=== PATIENT | male | born 2005 | race Hispanic/Latino ===

== ENCOUNTER 2024-01-02 14:27 | Emergency (ER) | payer SELFPAY ==
[2024-01-02 15:01] LABS: Bilirubin Neg (Negative); Blood, Urine Negative (Negative); Clarity Clear (Clear); Glucose, Urine (Dipstick) Normal (Negative); Ketone, Urine Negative (Negative); Leukocyte 25 (Negative); Nitrite Negative (Negative); Protein, Urine (Dipstick) Negative (Neg-Trace); Specific Gravity, Urine 1.015 (1.005-1.030); Urobilinogen Normal mg/dL (Less than 2)
[2024-01-02 15:24] LABS: #Basophils 0.03 10x3/uL (0.0-0.2); #Monocytes 0.33 10x3/uL (0.0-1.1); #Neutrophils 2.84 10x3/uL (1.5-8.4); %Basophils 0.5 % (0.0-2.0); %Eosinophils 1.7 % (0.0-6.0); %Lymphocytes 44.8 % (18.0-47.0); %Monocytes 5.5 % (0.0-10.0); %Neutrophils 47.2 % (40.0-75.0); Hematocrit 41.1 % (38.8-50.0); Hemoglobin 13.3 g/dL (13.5-17.5); Mean Corpuscular HGB CONC 32.4 g/dL (32.0-36.0); Mean Corpuscular Hemoglobin 25.3 pg (27.0-33.0); Mean Corpuscular Volume 78.1 fL (81.2-95.1); Mean Platelet Volume 11.4 fL (7.4-10.4); Platelet Count 254 10x3/uL (150-450); RBC Distribution Width 14.8 % (11.5-14.5); Red Blood Cell (RBC) Count 5.26 10x6/uL (4.32-5.72)
[2024-01-02 15:43] LABS: ALT (SGPT) 11 U/L (8-55); AST (SGOT) 20 U/L (5-34); Albumin 4.6 g/dL (3.5-5.0); Alkaline Phosphatase 103 U/L (50-130); Anion Gap 10 mmol/L (10-20); BUN (Urea Nitrogen) 12 mg/dL (8.9-20.6); Bilirubin, Total 0.7 mg/dL (0.2-1.2); Calc. Creatinine Clearance 0 mL/min (70-130); Calcium 9.7 mg/dL (7.8-10.44); Carbon Dioxide 28 mmol/L (22-29); Chloride 106 mmol/L (98-107); Estimated GFR 124; Globulin 2.9 g/dL (2.4-3.5); Glucose 99 mg/dL (70-105); Lipase 38 U/L (8-78); Potassium 3.9 mmol/L (3.5-5.1); Protein, Total 7.5 g/dL (6.0-8.3); Sodium 140 mmol/L (136-145)
[2024-01-02 16:03] LABS: HIV (1/2) Antibody/Antigen Non-Reactive (NonReactive); HIV 1/2 INDEX 0.05 S/CO (<1.00)
[2024-01-02 16:43] LABS: Bacteria/HPF 1+ HPF (None Seen); CAUTI Indications for Culture Pelvic or flank pain; Mucous/LPF 1+ LPF (<2+); RBC/HPF 0-3 HPF (0-3); Squamous Epithelial None Seen HPF (0-3)
[2024-01-02 16:44] LABS: Urine Culture Reflex Yes Yes
[2024-01-02] MEDS ORDERED: cefTRIAXone (ROCEPHIN) 500 MG VIAL ONE (16:49)
[2024-01-02] MEDS ORDERED: Sterile Water 10 ML ONE (16:49)
[2024-01-03 01:08] LABS: Hep A IgM AB NONREACTIVE (NonReactive); Hep A IgM S/CO 0.18 S/CO (0-0.79); Hep C IgG Ab NONREACTIVE S/CO (NonReactive); Hep C Index 0.05 S/CO (0-0.79); Hepatitis B Core IgM Abs NONREACTIVE S/CO (NonReactive)
[2024-01-03 01:53] LABS: HBCM Index 0.12 S/CO (0-0.79)
[2024-01-03 04:46] LABS: HBsAg Index 0.34 S/CO (0-0.99); Hep B Surf Ag NONREACTIVE S/CO (NonReactive)
[2024-01-03 14:21] LABS: Chlam.trachomatis by PCR,Urine Not Detected (NotDetected); GC N.gonorrhoeae PCR,UrineVOID Not Detected (NotDetected)
== END 2024-01-02 17:14 | disposition home or self-care (01) ==
LOC: CSHERS 14:27
DX: N39.0 Urinary tract infection, site not specified (principal); N45.2 Orchitis
CPT/HCPCS: 76870; 80053; 80074; 81001; 83690; 85025; 86790; 87086; 87389; 87491; 87591; 93976; 96372; J0696

== ENCOUNTER 2024-01-11 22:12 | Emergency (ER) | payer MEDICAID, SELFPAY | END 2024-01-11 23:05 | disposition home or self-care (01) | LOC: CSHERS 22:12 | DX: I86.1 Scrotal varices (principal) | CPT/HCPCS: 99283 ==

== ENCOUNTER 2025-06-22 16:25 | Emergency (ER) | payer SELFPAY ==
[2025-06-22 17:51] LABS: Glucose, Urine (Dipstick) Normal (Negative); Leukocyte Negative (Negative); Protein, Urine (Dipstick) Negative (Neg-Trace); Specific Gravity, Urine 1.010 (1.005-1.030)
[2025-06-22 18:23] LABS: Bacteria/HPF None Seen HPF (None Seen); CAUTI Indications for Culture Dysuria,urgency,freq; RBC/HPF 0-3 HPF (0-3); Urine Culture Reflex No No; WBC/HPF 0-3 HPF (0-3)
[2025-06-24 01:26] LABS: Chlam.trachomatis by PCR,Urine DETECTED (NotDetected); GC N.gonorrhoeae PCR,UrineVOID Not Detected (NotDetected)
== END 2025-06-22 19:18 | disposition home or self-care (01) ==
LOC: CSHERS 16:25
DX: B35.6 Tinea cruris (principal); N43.3 Hydrocele, unspecified
CPT/HCPCS: 76870; 81001; 87086; 87491; 87591; 93976; 99284